=== PATIENT | male | born 1940 | race Caucasian/White ===

== ENCOUNTER 2017-08-02 09:26 | Day surgery (SDC) | payer MEDICARE, OTHER ==
[2017-08-02] MEDS ORDERED: OCTAGAM IVPB SCH (09:45)
[2017-08-02] MEDS ORDERED: ADMIXTURE FEE IVPB SCH (09:45)
[2017-08-02 10:10] VITALS: BP 139/71
[2017-08-02] MEDS ORDERED: Sodium Chloride 0.9% 20 ML ONE (11:31)
== END 2017-08-02 16:13 | disposition home or self-care (01) ==
LOC: ONC/OP 09:26
PROVIDERS: ATTEND Psychiatry & Neurology Neurology
DX: G61.81 Chronic inflammatory demyelinating polyneuritis (principal); Z79.52 Long term (current) use of systemic steroids; Z79.899 Other long term (current) drug therapy; Z88.6 Allergy status to analgesic agent; Z88.8 Allergy status to other drugs, medicaments and biological substances
CPT/HCPCS: 96365; 96366; A4216; J1568

== ENCOUNTER 2017-08-31 09:19 | Day surgery (SDC) | payer MEDICARE, OTHER ==
[2017-08-31] MEDS ORDERED: OCTAGAM 10% 60 GM, OCTAGAM 10% 10 GM, OCTAGAM 10% 5 GM in Admixture Fee 1 EACH IVPB SCH (09:30)
[2017-08-31 09:43] VITALS: TEMP 97.7
[2017-08-31] MEDS ORDERED: Sodium Chloride 0.9% 20 ML ONE (11:59)
[2017-08-31 13:37] VITALS: BP 177/80
== END 2017-08-31 13:05 | disposition home or self-care (01) ==
LOC: ONC/OP 09:19
PROVIDERS: ATTEND Psychiatry & Neurology Neurology
DX: G61.81 Chronic inflammatory demyelinating polyneuritis (principal); Z88.6 Allergy status to analgesic agent; Z88.8 Allergy status to other drugs, medicaments and biological substances; Z79.52 Long term (current) use of systemic steroids; Z79.899 Other long term (current) drug therapy
CPT/HCPCS: 96413; 96415; A4216; J1568

== ENCOUNTER 2017-09-26 09:30 | Day surgery (SDC) | payer MEDICARE, OTHER ==
[2017-09-26] MEDS ORDERED: Sodium Chloride 0.9% 20 ML ONE (09:39)
[2017-09-26] MEDS ORDERED: OCTAGAM 10% 80 GM, OCTAGAM 10% 10 GM in Admixture Fee 1 EACH IVPB SCH (10:00)
[2017-09-26 10:05] VITALS: BP 146/69; TEMP 97.8
== END 2017-09-26 16:48 | disposition home or self-care (01) ==
LOC: ONC/OP 09:30
PROVIDERS: ATTEND Psychiatry & Neurology Neurology
DX: G61.81 Chronic inflammatory demyelinating polyneuritis (principal); G63 Polyneuropathy in diseases classified elsewhere; Z88.6 Allergy status to analgesic agent; Z88.8 Allergy status to other drugs, medicaments and biological substances
CPT/HCPCS: 96365; 96366; A4216; J1568

== ENCOUNTER 2017-10-29 09:27 | Day surgery (SDC) | payer MEDICARE, OTHER ==
[2017-10-29] MEDS ORDERED: Sodium Chloride 0.9% 20 ML ONE (09:38)
[2017-10-29 09:56] VITALS: BP 135/63; TEMP 97.6
[2017-10-29] MEDS ORDERED: OCTAGAM IVPB SCH (10:00)
== END 2017-10-29 14:33 | disposition home or self-care (01) ==
LOC: ONC/OP 09:27
PROVIDERS: ATTEND Psychiatry & Neurology Neurology
DX: G61.81 Chronic inflammatory demyelinating polyneuritis (principal); G63 Polyneuropathy in diseases classified elsewhere; Z79.52 Long term (current) use of systemic steroids; Z79.899 Other long term (current) drug therapy; Z88.6 Allergy status to analgesic agent; Z88.8 Allergy status to other drugs, medicaments and biological substances
CPT/HCPCS: 96365; 96366; A4216; J1568

== ENCOUNTER 2017-11-28 09:34 | Day surgery (SDC) | payer MEDICARE, OTHER ==
[2017-11-28 09:43] VITALS: BP 136/73
[2017-11-28] MEDS ORDERED: Sodium Chloride 0.9% 20 ML ONE (09:43)
[2017-11-28] MEDS ORDERED: OCTAGAM 10% 80 GM, OCTAGAM 10% 10 GM in Admixture Fee 1 EACH IVPB SCH (09:45)
[2017-11-28] MEDS ORDERED: ADMIXTURE FEE IVPB SCH (10:00)
[2017-11-28] MEDS ORDERED: OCTAGAM IVPB SCH (10:00)
== END 2017-11-28 13:40 | disposition home or self-care (01) ==
LOC: ONC/OP 09:34
PROVIDERS: ATTEND Psychiatry & Neurology Neurology
DX: G61.81 Chronic inflammatory demyelinating polyneuritis (principal); G63 Polyneuropathy in diseases classified elsewhere; Z88.6 Allergy status to analgesic agent; Z88.8 Allergy status to other drugs, medicaments and biological substances; Z79.52 Long term (current) use of systemic steroids; Z79.899 Other long term (current) drug therapy
CPT/HCPCS: 96365; 96366; A4216; J1568

== ENCOUNTER 2017-12-26 09:48 | Day surgery (SDC) | payer MEDICARE, OTHER ==
[2017-12-26] MEDS ORDERED: Sodium Chloride 0.9% 20 ML ONE (09:54)
[2017-12-26] MEDS ORDERED: OCTAGAM 10% 80 GM in Admixture Fee 1 EACH IVPB SCH (10:15)
== END 2017-12-26 14:11 | disposition home or self-care (01) ==
LOC: ONC/OP 09:48
PROVIDERS: ATTEND Psychiatry & Neurology Neurology
DX: G61.81 Chronic inflammatory demyelinating polyneuritis (principal); G63 Polyneuropathy in diseases classified elsewhere; Z88.8 Allergy status to other drugs, medicaments and biological substances; Z88.6 Allergy status to analgesic agent
CPT/HCPCS: 96365; 96366; A4216; J1568

== ENCOUNTER 2018-01-23 09:55 | Day surgery (SDC) | payer MEDICARE, OTHER ==
[2018-01-23] MEDS ORDERED: Sodium Chloride 0.9% 30 ML ONE (10:09)
[2018-01-23] MEDS ORDERED: OCTAGAM IVPB SCH (10:15)
[2018-01-23] MEDS ORDERED: ADMIXTURE FEE CHEMO IVPB SCH (10:15)
== END 2018-01-23 14:10 | disposition home or self-care (01) ==
LOC: ONC/OP 09:55
PROVIDERS: ATTEND Psychiatry & Neurology Neurology
DX: G61.81 Chronic inflammatory demyelinating polyneuritis (principal); G63 Polyneuropathy in diseases classified elsewhere; Z88.6 Allergy status to analgesic agent; Z88.8 Allergy status to other drugs, medicaments and biological substances
CPT/HCPCS: 96365; 96366; A4216; J1568

== ENCOUNTER 2018-02-20 09:37 | Day surgery (SDC) | payer MEDICARE, OTHER ==
[2018-02-20] MEDS ORDERED: Sodium Chloride 0.9% 20 ML ONE (09:55)
[2018-02-20] MEDS ORDERED: OCTAGAM 10% 80 GM, OCTAGAM 10% 10 GM in Admixture Fee 1 EACH IVPB SCH (10:00)
[2018-02-20 11:24] VITALS: BP 169/80; TEMP 97.8
== END 2018-02-20 16:09 | disposition home or self-care (01) ==
LOC: ONC/OP 09:37
PROVIDERS: ATTEND Psychiatry & Neurology Neurology
DX: G61.81 Chronic inflammatory demyelinating polyneuritis (principal); G63 Polyneuropathy in diseases classified elsewhere; Z88.6 Allergy status to analgesic agent; Z88.8 Allergy status to other drugs, medicaments and biological substances
CPT/HCPCS: 96365; 96366; A4216; J1568

== ENCOUNTER 2018-03-20 09:29 | Day surgery (SDC) | payer MEDICARE, OTHER ==
[2018-03-20] MEDS ORDERED: OCTAGAM 10% 80 GM in Admixture Fee 1 EACH IVPB SCH (10:00)
[2018-03-20] MEDS ORDERED: Sodium Chloride 0.9% 20 ML ONE (10:06)
[2018-03-20] MEDS ORDERED: OCTAGAM 10% 90 GM in Admixture Fee 1 EACH IVPB SCH (10:15)
[2018-03-20 11:41] VITALS: BP 158/76; TEMP 97.2
== END 2018-03-20 13:39 | disposition home or self-care (01) ==
LOC: ONC/OP 09:29
PROVIDERS: ATTEND Psychiatry & Neurology Neurology
DX: G61.81 Chronic inflammatory demyelinating polyneuritis (principal); G63 Polyneuropathy in diseases classified elsewhere; Z88.6 Allergy status to analgesic agent
CPT/HCPCS: 96365; 96366; A4216; J1568

== ENCOUNTER 2018-04-18 09:16 | Day surgery (SDC) | payer MEDICARE, OTHER ==
[2018-04-18] MEDS ORDERED: Sodium Chloride 0.9% 20 ML ONE (09:20)
[2018-04-18 09:48] VITALS: BP 158/77; TEMP 97.8
[2018-04-18] MEDS ORDERED: OCTAGAM 10% 80 GM, OCTAGAM 10% 10 GM in Admixture Fee 1 EACH IVPB SCH (10:00)
== END 2018-04-18 14:50 | disposition home or self-care (01) ==
LOC: ONC/OP 09:16
PROVIDERS: ATTEND Psychiatry & Neurology Neurology
DX: G61.81 Chronic inflammatory demyelinating polyneuritis (principal)
CPT/HCPCS: 96365; 96366; A4216; J1568

== ENCOUNTER 2018-05-22 09:19 | Day surgery (SDC) | payer MEDICARE, OTHER ==
[2018-05-22] MEDS ORDERED: Sodium Chloride 0.9% 20 ML ONE (09:23)
[2018-05-22] MEDS ORDERED: OCTAGAM IVPB SCH (09:30)
[2018-05-22 10:01] VITALS: BP 111/78; TEMP 97.2
== END 2018-05-22 14:03 | disposition home or self-care (01) ==
LOC: ONC/OP 09:19
PROVIDERS: ATTEND Psychiatry & Neurology Neurology
DX: G61.81 Chronic inflammatory demyelinating polyneuritis (principal)
CPT/HCPCS: 96365; 96366; J1568

== ENCOUNTER 2018-06-19 09:21 | Day surgery (SDC) | payer MEDICARE, OTHER ==
[2018-06-19 09:54] VITALS: BP 155/74; TEMP 97.7
[2018-06-19] MEDS ORDERED: OCTAGAM 10% 80 GM, OCTAGAM 10% 10 GM in Admixture Fee 1 EACH IVPB SCH (10:15)
== END 2018-06-19 16:07 | disposition home or self-care (01) ==
LOC: ONC/OP 09:21
PROVIDERS: ATTEND Psychiatry & Neurology Neurology
DX: G63 Polyneuropathy in diseases classified elsewhere (principal); Z88.8 Allergy status to other drugs, medicaments and biological substances
CPT/HCPCS: 96365; 96366; J1568

== ENCOUNTER 2018-07-17 09:09 | Day surgery (SDC) | payer MEDICARE, OTHER ==
[2018-07-17 09:37] VITALS: BP 163/79; TEMP 98
[2018-07-17] MEDS ORDERED: OCTAGAM IVPB SCH (09:45)
[2018-07-17] MEDS ORDERED: ADMIXTURE FEE CHEMO IVPB SCH (09:45)
[2018-07-17] MEDS ORDERED: Sodium Chloride 0.9% 20 ML ONE (10:47)
== END 2018-07-17 13:36 | disposition home or self-care (01) ==
LOC: ONC/OP 09:09
PROVIDERS: ATTEND Psychiatry & Neurology Neurology
DX: G61.81 Chronic inflammatory demyelinating polyneuritis (principal); Z88.8 Allergy status to other drugs, medicaments and biological substances
CPT/HCPCS: 96365; 96366; A4216; J1568

== ENCOUNTER 2018-08-14 09:25 | Day surgery (SDC) | payer MEDICARE, OTHER ==
[2018-08-14] MEDS ORDERED: ADMIXTURE FEE IVPB SCH (09:45)
[2018-08-14] MEDS ORDERED: OCTAGAM IVPB SCH (09:45)
[2018-08-14] MEDS ORDERED: OCTAGAM 10% 80 GM, OCTAGAM 10% 10 GM in Admixture Fee 1 EACH IVPB SCH (10:00)
[2018-08-14 10:07] VITALS: BP 115/55; TEMP 98.5
== END 2018-08-14 15:13 | disposition home or self-care (01) ==
LOC: ONC/OP 09:25
PROVIDERS: ATTEND Psychiatry & Neurology Neurology
DX: G61.81 Chronic inflammatory demyelinating polyneuritis (principal)
CPT/HCPCS: 96365; 96366; J1568

== ENCOUNTER 2018-09-11 09:50 | Day surgery (SDC) | payer MEDICARE, OTHER ==
[2018-09-11] MEDS ORDERED: Sodium Chloride 0.9% 20 ML ONE (10:11)
[2018-09-11] MEDS ORDERED: OCTAGAM IVPB SCH ×2 (10:15→10:30)
[2018-09-11 12:28] VITALS: BP 138/70; TEMP 98.7
== END 2018-09-11 14:03 | disposition home or self-care (01) ==
LOC: ONC/OP 09:50
PROVIDERS: ATTEND Psychiatry & Neurology Neurology
DX: G61.81 Chronic inflammatory demyelinating polyneuritis (principal); Z88.8 Allergy status to other drugs, medicaments and biological substances
CPT/HCPCS: 96365; 96366; J1568

== ENCOUNTER 2018-10-09 09:29 | Day surgery (SDC) | payer MEDICARE, OTHER ==
[2018-10-09] MEDS ORDERED: Privigen 80 GM, Privigen 10 GM in Admixture Fee 1 EACH IVPB SCH (09:45)
[2018-10-09] MEDS ORDERED: Sodium Chloride 0.9% 20 ML ONE ×2 (10:15→10:58)
[2018-10-09 11:01] VITALS: BP 154/73; TEMP 98
== END 2018-10-09 12:49 | disposition home or self-care (01) ==
LOC: ONC/OP 09:29
PROVIDERS: ATTEND Psychiatry & Neurology Neurology
DX: G61.81 Chronic inflammatory demyelinating polyneuritis (principal); Z88.6 Allergy status to analgesic agent; Z88.8 Allergy status to other drugs, medicaments and biological substances
CPT/HCPCS: 96365; 96366; J1459

== ENCOUNTER → 2018-11-06 | Day surgery (SDC) | payer MEDICARE, OTHER ==
[~2018-11-06] MED LIST: OCTAGAM 10% 90 GM in Admixture Fee 1 EACH IVPB SCH; Privigen 80 GM, Privigen 10 GM in Admixture Fee 1 EACH IVPB SCH; Sodium Chloride 0.9% 20 ML ONE
[2018-11-06 12:01] VITALS: BP 143/72; TEMP 97.8
== END ==
LOC: ONC/OP 09:56
PROVIDERS: ATTEND Psychiatry & Neurology Neurology
DX: G61.81 Chronic inflammatory demyelinating polyneuritis (principal); Z79.899 Other long term (current) drug therapy; Z79.52 Long term (current) use of systemic steroids; Z88.6 Allergy status to analgesic agent; Z88.8 Allergy status to other drugs, medicaments and biological substances
CPT/HCPCS: 96365; 96366; J1459; J1568

== ENCOUNTER 2018-12-04 00:25 | Day surgery (SDC) | payer MEDICARE, OTHER ==
[2018-12-04] MEDS ORDERED: OCTAGAM 10% 80 GM, OCTAGAM 10% 10 GM in Admixture Fee 1 EACH IVPB SCH (09:00)
[2018-12-04] MEDS ORDERED: Sodium Chloride 0.9% 20 ML ONE (09:36)
[2018-12-04 10:47] VITALS: BP 161/81; TEMP 99
== END 2018-12-04 13:45 | disposition home or self-care (01) ==
LOC: ONC/OP 00:25
PROVIDERS: ATTEND Psychiatry & Neurology Neurology
DX: G61.81 Chronic inflammatory demyelinating polyneuritis (principal); Z88.6 Allergy status to analgesic agent; Z88.8 Allergy status to other drugs, medicaments and biological substances
CPT/HCPCS: 96365; 96366; J1568